=== PATIENT | male | born 1955 | race Caucasian/White ===

== ENCOUNTER 2020-12-21 06:53 | Day surgery (SDC) | payer OTHER, MEDICARE ==
[~2020-12-21 06:53] MED LIST: Midazolam 1 MG/ML 2 ML SDV ONE; fentaNYL 100 MCG/2 ML SDV ONE
[2020-12-21] MEDS ORDERED: fentaNYL 100 MCG/2 ML SDV IV ONE ×3 (06:54→08:16)
[2020-12-21] MEDS ORDERED: Midazolam 1 MG/ML 2 ML SDV IV ONE ×3 (06:54→08:17)
[2020-12-21] MEDS ORDERED: Dextrose 5%-0.45% NaCl 1,000 ML IV SCH (07:30)
[2020-12-21 13:11] VITALS: BP 118/61; PULSE 54
--- NOTE | 2020-12-21 13:20 | OR ---
DATE: 12/21/2020 PROCEDURE: Esophagogastroduodenoscopy and multiple pinch biopsies. INSTRUMENT USED: GIF-HQ190 Olympus video panendoscope. PREMEDICATIONS: No oral or topical anesthesia used. Fentanyl 100 mcg intravenous, Versed 2 mg intravenous, nasal O2 cannula. The procedure was done under pulse oximetry, BP recording, and drafter cartographic. INDICATION: The patient with unexplained iron-deficiency anemia. Esophagogastroduodenoscopy is performed for detection of any active erosive lesions, Man esophagus, and/or malignancy also under consideration, H. pylori status will be determined. Small bowel biopsies to be obtained if indicated for any evidence of celiac disease, endoscopic hemostasis therapy if needed. DESCRIPTION OF PROCEDURE: The scope was passed with ease. Adequate visualization of the esophagus was made from proximal to distal areas. No upper esophageal lesions identified. No distal esophageal stricture. No uphill or downhill esophageal varices. No Salud-Stephens tear. No evidence of erosive esophagitis by Chrisman criteria. No esophageal polyp or tumor mass identified. Z-line was seen at around 40 cm distal to oral verge. No proximal gastric varices noted. Gastric fundus examination by retroflexion showed diminutive benign-appearing multiple polyps. No gastric ulcer, malignant mass, or vascular ectasia identified. Duodenal bulb showed no ulcer. Visualized second part of duodenum was unremarkable. Multiple pinch biopsies, 4 in number, were taken from different areas of the second part of the duodenum and tissues were also obtained from the duodenal bulb at 9 and 12 o'clock positions and sent for any histopathologic evidence of celiac disease. Multiple pinch biopsies were also obtained from the gastric antrum and proximal body and sent for PyloriTek test for H. pylori and histopathology. No bleeding was noted from any of the visualized areas at the completion of examination. Photographs were taken of duodenal bulb, gastric antrum, fundus, and distal esophagus. IMPRESSION: Diminutive gastric fundus polyps. The patient tolerated the procedure well. [facility] /[id number]
== END 2020-12-21 09:51 | disposition home or self-care (01) ==
LOC: DL.ENDO 06:53
PROVIDERS: ATTEND Internal Medicine Gastroenterology
DX: D50.9 Iron deficiency anemia, unspecified (principal); K31.7 Polyp of stomach and duodenum; E66.09 Other obesity due to excess calories; I10 Essential (primary) hypertension; G47.33 Obstructive sleep apnea (adult) (pediatric); M54.16 Radiculopathy, lumbar region; R91.1 Solitary pulmonary nodule; Z90.49 Acquired absence of other specified parts of digestive tract; Z98.890 Other specified postprocedural states; Z88.1 Allergy status to other antibiotic agents; Z88.8 Allergy status to other drugs, medicaments and biological substances; Z68.32 Body mass index [BMI] 32.0-32.9, adult
CPT/HCPCS: 43239; 87077; J2250; J3010; J7042; 88305

== ENCOUNTER 2020-12-23 06:23 | Day surgery (SDC) | payer OTHER, MEDICARE ==
[~2020-12-23 06:23] MED LIST changes: +Dextrose 5%-0.45% NaCl 1,000 ML IV SCH; +Sodium Chloride 0.9% 10 ML Syringe FLUSH PRN
[2020-12-23] MEDS ORDERED: fentaNYL 100 MCG/2 ML SDV IV ONE ×3 (06:24→08:40)
[2020-12-23] MEDS ORDERED: Midazolam 1 MG/ML 2 ML SDV IV ONE ×6 (06:24→08:51)
[2020-12-23 11:58] VITALS: BP 114/58; PULSE 58
--- NOTE | 2020-12-23 13:00 | OR ---
DATE: 12/23/2020 PROCEDURE: Total colonoscopy. INSTRUMENT USED: PCF-H190DL Olympus video colonoscope. PREMEDICATIONS: Fentanyl 100 mcg intravenous, Versed 3.5 mg intravenous. Nasal O2 cannula. The procedure was done under pulse oximetry, BP recording, and long wall shear operator. INDICATION: The patient with unexplained iron-deficiency anemia. Colonoscopic examination is done for detection of any polypoid lesions and removal, endoscopic hemostasis therapy if needed. DESCRIPTION OF PROCEDURE: Initial rectal exam was unremarkable. Rigid anoscopy was normal. The colonoscope was passed with ease. Scattered diverticula were noted in the distal left colon along with some deformity. The scope was advanced with ease up to the ileocecal area. Photographs were taken of the normal-appearing cecum, identified by double-bulged ileocecal folds. No bleeding was noted from any of the visualized areas at the commencement of the examination. Bowel preparation was found to be adequate, [place] scale 3 in all the regions, total score 9. No stricture. No vascular ectasia. No large isolated ulcerations seen. No evidence of diffuse inflammatory bowel disease in the form friability contact bleeding, or ulcerations. No polyp or tumor mass identified. Probing the proximal sides of folds and flexures using adequate distention and clearing up the stool material, withdrawal of the scope was made, cecum to rectum time over 6 minutes. No bleeding was noted from any of the visualized areas at the completion of examination. IMPRESSION: Diverticulosis. The patient tolerated the procedure well. [facility] /[id number]
== END 2020-12-23 11:00 | disposition home or self-care (01) ==
LOC: DL.ENDO 06:23
PROVIDERS: ATTEND Internal Medicine Gastroenterology
DX: D50.9 Iron deficiency anemia, unspecified (principal); K57.30 Diverticulosis of large intestine without perforation or abscess without bleeding; E66.09 Other obesity due to excess calories; I10 Essential (primary) hypertension; G47.33 Obstructive sleep apnea (adult) (pediatric); Z90.49 Acquired absence of other specified parts of digestive tract; Z88.1 Allergy status to other antibiotic agents; Z88.8 Allergy status to other drugs, medicaments and biological substances; Z98.890 Other specified postprocedural states
CPT/HCPCS: 45378; J2250; J3010; J7042

== ENCOUNTER 2021-09-13 08:53 | Day surgery (SDC) | payer OTHER, MEDICARE ==
[2021-09-13] MEDS ORDERED: Sodium Chloride 0.9% 10 ML Syringe IV ONE (08:54)
[2021-09-13] MEDS ORDERED: Dexamethasone 4 MG/ML SDV IV ONE (08:54)
[2021-09-13] MEDS ORDERED: Midazolam 1 MG/ML 2 ML SDV IV ONE (08:54)
[2021-09-13] MEDS ORDERED: Acetaminophen 325 MG Tab PO PRN (09:00)
[2021-09-13] MEDS ORDERED: Phenylephrine 10% Ophth Soln 5 ML Bot EYELF ONE (09:00)
[2021-09-13] MEDS ORDERED: Acetaminophen/Codeine 300-30 MG Tab PO PRN (09:00)
[2021-09-13] MEDS ORDERED: Proparacaine 0.5% Ophth Soln 15 ML Bottle EYELF ONE (09:00)
[2021-09-13] MEDS ORDERED: Cataract Ophth Solution EYELF ONE (09:00)
[2021-09-13] MEDS ORDERED: Timolol Maleate 0.5% Ophth Soln 5 ML Bottle EYELF ONE (09:00)
[2021-09-13] MEDS ORDERED: Tobramycin 0.3% Ophth Drops 5 ML Bottle EYELF SCH (09:00)
[2021-09-13] MEDS ORDERED: Moxifloxacin 0.5% Ophth Soln 3 ML Bottle EYELF ONE (09:00)
[2021-09-13] MEDS ORDERED: Ondansetron 4 MG/2 ML SDV IVPUSH PRN (09:00)
[2021-09-13] MEDS ORDERED: Tropicamide 1% Ophth Soln 15 ML Bottle EYELF ONE (09:00)
[2021-09-13] MEDS ORDERED: Povidone-Iodine 5% Sterile Ophth Soln 30 ML Bottle EYELF ONE ×2 (09:00→10:00)
[2021-09-13] MEDS ORDERED: Tetracaine HCl/PF 0.5% 4 ML Bottle EYELF ONE (10:00)
[2021-09-13] MEDS ORDERED: Lidocaine 1% 30 ML SDV ONE (10:00)
[2021-09-13] MEDS ORDERED: Apraclonidine 0.5% Ophth Soln 5 ML Bot EYELF ONE (10:01)
[2021-09-13] MEDS ORDERED: Dexamethasone/Tobramycin 0.1-0.3% Ophth Oint 3.5 GM Tube EYELF ONE (10:01)
[2021-09-13] MEDS ORDERED: Diclofenac Sodium 0.1% Ophth Soln 5 ML Bottle EYELF ONE (10:03)
[2021-09-13] MEDS ORDERED: Balanced Salt Solution Ophth Irrig 500 ML Bottle IOCULAR ONE (10:03)
[2021-09-13] MEDS ORDERED: Chondroitin Sulfate/Hyaluronate Sodium Ophth Inj 0.75 ML Syringe EYELF ONE (10:04)
[2021-09-13] MEDS ORDERED: Vancomycin 500 MG SDV EYELF ONE (10:04)
[2021-09-13 11:06] VITALS: BP 124/71; PULSE 83
--- NOTE | 2021-09-14 09:10 | OR ---
DATE: 09/13/2021 PREOPERATIVE DIAGNOSIS: Visually significant mixed cataract, left eye. POSTOPERATIVE DIAGNOSIS: Visually significant mixed cataract, left eye. PROCEDURE: Extracapsular cataract extraction with intraocular lens implant, left eye. ANESTHESIA: Topical/local MAC. COMPLICATIONS: None. INDICATION: Mr. Duque was seen in the clinic. His examination revealed visually significant mixed cataract. He is unhappy, noticing a slow progressive change. He has difficulty with multiple activities of daily living, including reading; seeing magazines, newspapers, pill bottles, phone books; difficulty with bright lights and glare; difficulty driving. He saw his regular dairy science teacher, Dr. Horton. Dr. Horton was not able to improve his vision and meet his visual needs with a change in glasses. I have explained options, offered cataract surgery, and I explained risks including, but not limited to, infection, retinal detachment, loss of vision, need for additional surgery, amongst others. We have discussed implant options. He has requested a toric implant. He does have a history of possible amblyopia and explained that his ultimate visual potential may be limited. He is symptomatic and requested surgery to improve vision and function. He voiced understanding with respect to risks and limitations. OPERATIVE DESCRIPTION: After informed consent was obtained and the risks, benefits, and alternatives were explained, the patient was brought to the operative suite and topical anesthesia was administered. The patient was then prepped and draped in the sterile fashion and attention was placed on the left eye. A sterile lid speculum was placed into the left eye to allow operative exposure. A full-thickness paracentesis was made in the temporal portion of the operative eye. Preservative-free lidocaine 0.1 mL was injected into the anterior chamber followed by viscoelastic. A full-thickness corneal incision was then made into the anterior chamber. A bent needle cystotome was used to create a small padma in the anterior capsule. The capsulorrhexis forceps was then used to create a 360-degree curvilinear capsulorrhexis. The nucleus was then removed using a phacoemulsification handpiece and the remaining cortical material was then removed with irrigation and aspiration handpiece. Following removal of the cortical material, the capsular bag was then inspected and noted to be free of any holes or tears. Viscoelastic was then injected into the capsular bag and the intraocular lens was inserted into the capsular bag. The implant was oriented to correspond with preoperative corneal fenton made with the patient in the upright position. The viscoelastic material was then removed from both the anterior and posterior chambers and from behind the IOL. The lens and capsular bag were then reinspected. The IOL was well centered and the capsular bag intact. The wound and paracentesis sites were inspected and hydrated with balanced saline solution. Both were found to be self-sealing. The intraocular pressure was assessed digitally and found to be within normal range. A good red reflex was noted at the completion of the procedure. No complications occurred during the operation. At the completion of the procedure, Maxitrol, Voltaren, and Iopidine drops were placed into the operative eye. A sterile eye shield was placed over the operative eye and the patient was transported to the postoperative recovery area having tolerated the procedure well. Postoperative instructions were given along with a postoperative appointment. The patient was advised to call with any questions or concerns. [facility] /[id number]
== END 2021-09-13 11:05 | disposition home or self-care (01) ==
LOC: DL.SDS 08:53
PROVIDERS: ATTEND Ophthalmology
DX: H26.8 Other specified cataract (principal); G89.29 Other chronic pain; G47.33 Obstructive sleep apnea (adult) (pediatric); E66.9 Obesity, unspecified; Z90.49 Acquired absence of other specified parts of digestive tract; Z98.890 Other specified postprocedural states; Z87.891 Personal history of nicotine dependence; Z88.8 Allergy status to other drugs, medicaments and biological substances; Z68.33 Body mass index [BMI] 33.0-33.9, adult
CPT/HCPCS: 00142; A9270-GY; J1100; J2250; J3370; V2787-GY

== ENCOUNTER → 2021-10-11 | Day surgery (SDC) | payer OTHER, MEDICARE ==
[~2021-10-11] MED LIST changes: +Acetaminophen 325 MG Tab PO PRN; +Acetaminophen/Codeine 300-30 MG Tab PO PRN; +Apraclonidine 0.5% Ophth Soln 5 ML Bot EYERT ONE; +Balanced Salt Solution Ophth Irrig 500 ML Bottle IOCULAR ONE; +Cataract Ophth Solution EYERT ONE; +Chondroitin Sulfate/Hyaluronate Sodium Ophth Inj 0.75 ML Syringe EYERT ONE; +Dexamethasone 4 MG/ML SDV IV ONE; +Dexamethasone/Tobramycin 0.1-0.3% Ophth Oint 3.5 GM Tube EYERT ONE; -Dextrose 5%-0.45% NaCl 1,000 ML IV SCH; +Diclofenac Sodium 0.1% Ophth Soln 5 ML Bottle EYERT ONE; +Lidocaine 1% 30 ML SDV ONE; +Midazolam 1 MG/ML 2 ML SDV IV ONE; -Midazolam 1 MG/ML 2 ML SDV ONE; +Moxifloxacin 0.5% Ophth Soln 3 ML Bottle EYERT ONE; +Ondansetron 4 MG/2 ML SDV IVPUSH PRN; +Phenylephrine 10% Ophth Soln 5 ML Bot EYERT ONE; +Povidone-Iodine 5% Sterile Ophth Soln 30 ML Bottle EYERT ONE; +Proparacaine 0.5% Ophth Soln 15 ML Bottle EYERT ONE; -Sodium Chloride 0.9% 10 ML Syringe FLUSH PRN; +Sodium Chloride 0.9% 10 ML Syringe IV ONE; +Tetracaine HCl/PF 0.5% 4 ML Bottle EYERT ONE; +Timolol Maleate 0.5% Ophth Soln 5 ML Bottle EYERT ONE; +Tobramycin 0.3% Ophth Drops 5 ML Bottle EYERT SCH; +Tropicamide 1% Ophth Soln 15 ML Bottle EYERT ONE; +Vancomycin 500 MG SDV EYERT ONE; -fentaNYL 100 MCG/2 ML SDV ONE
[2021-10-11] MEDS: Povidone-Iodine 5% Sterile Ophth Soln 30 ML Bottle EYERT ONE ×2 (10:19→10:22)
[2021-10-11 11:47] VITALS: BP 133/77; PULSE 65
== END | disposition home or self-care (01) ==
LOC: DL.SDS 09:32
PROVIDERS: ATTEND Ophthalmology
DX: H25.811 Combined forms of age-related cataract, right eye (principal); G47.33 Obstructive sleep apnea (adult) (pediatric); E66.9 Obesity, unspecified; I10 Essential (primary) hypertension; G47.30 Sleep apnea, unspecified; Z90.49 Acquired absence of other specified parts of digestive tract; Z98.890 Other specified postprocedural states; Z87.891 Personal history of nicotine dependence; Z79.899 Other long term (current) drug therapy; Z88.8 Allergy status to other drugs, medicaments and biological substances; Z68.33 Body mass index [BMI] 33.0-33.9, adult
CPT/HCPCS: 00142; 66984; A9270; J1100; J2250; J3370; V2787

== ENCOUNTER 2022-09-14 09:20 | Emergency (ER) | payer MEDICARE, OTHER ==
[2022-09-14 10:00] VITALS: BP 196/97; PULSE 68
[2022-09-14 10:44] LABS: ANION GAP 9.4 mEq/L (7-13)
== END 2022-09-14 11:30 | disposition home or self-care (01) ==
LOC: DL.ED 09:20
DX: I10 Essential (primary) hypertension (principal); E83.42 Hypomagnesemia; E66.9 Obesity, unspecified; Z68.31 Body mass index [BMI] 31.0-31.9, adult; Z88.1 Allergy status to other antibiotic agents; Z88.8 Allergy status to other drugs, medicaments and biological substances; Z79.899 Other long term (current) drug therapy; Z87.891 Personal history of nicotine dependence
CPT/HCPCS: 36415; 80048; 83735; 99283

== ENCOUNTER 2022-12-31 08:40 | Emergency (ER) | payer MEDICARE, OTHER ==
[2022-12-31 09:17] VITALS: BP 129/71; PULSE 71
== END 2022-12-31 10:35 | disposition home or self-care (01) ==
LOC: DL.ED 08:40
DX: S70.02XA Contusion of left hip, initial encounter (principal); I10 Essential (primary) hypertension; E66.9 Obesity, unspecified; Z88.2 Allergy status to sulfonamides; Z88.1 Allergy status to other antibiotic agents; Z88.8 Allergy status to other drugs, medicaments and biological substances; Z79.899 Other long term (current) drug therapy; Z86.16 Personal history of COVID-19; Z68.31 Body mass index [BMI] 31.0-31.9, adult; W00.0XXA Fall on same level due to ice and snow, initial encounter; Y92.89 Other specified places as the place of occurrence of the external cause; Y99.0 Civilian activity done for income or pay
CPT/HCPCS: 72100; 99283; 99284